=== PATIENT | female | born 1935 | race Caucasian/White ===

== ENCOUNTER 2016-05-04 12:39 | Emergency (ER) | payer OTHER, MEDICARE ==
[~2016-05-04] VITALS: Ht 162.6 cm; Wt 81.4 kg
[2016-05-04 14:00] LABS: EOSINOPHIL (%) 0.8 % (0-5); EOSINOPHIL COUNT 0.1 K/uL (0-0.3); HEMATOCRIT 35.9 % (36.0-46.0); IMMATURE GRANULOCYTE (%) 0.5 % (0.0-0.7); IMMATURE GRANULOCYTE COUNT 0.4 K/uL; LYMPHOCYTE COUNT 1.6 K/uL (1.0-2.8); MCH 30.3 PG (29.0-34.0); MCV 89.3 FL (83-99); MONOCYTE (%) 10.9 % (3-12); MONOCYTE COUNT 0.9 K/uL (0-0.8); NEUTROPHIL (%) 69.5 % (45-76); PLATELET COUNT 318 K/uL (156-360); RBC DIS.WIDTH-CV 13.6 % (11.8-14.6); RED BLOOD COUNT 4.02 M/uL (3.80-5.20); WHITE BLOOD COUNT 8.6 K/uL (4.1-10.2)
[2016-05-04 14:08] LABS: CHLORIDE 96 mEq/L (99-109); SODIUM 135 mEq/L (136-147)
[2016-05-04 14:09] LABS: GLUCOSE 82 mg/dL (70-99)
[2016-05-04 14:11] LABS: ANION GAP 10 MEQ/L (2-14)
[2016-05-04 14:13] LABS: GFR ESTIMATE (CALCULATED) > 59 mL/min/
[2016-05-04 14:14] LABS: UREA NITROGEN (BUN) 10 mg/dL (9-23)
[2016-05-04 15:26] LABS: ADD MIUA? YES; BILIRUBIN NEGATIVE; BLOOD MODERATE; COLOR YELLOW ((YELLOW)); GLUCOSE (STRIP) NEGATIVE; KETONES NEGATIVE; LEUKOCYTES TRACE; NITRITE NEGATIVE; PROTEIN (STRIP) NEGATIVE; SPECIFIC GRAVITY 1.006 (1.000-1.030); UROBILINOGEN 0.2 MG/DL (0.2-1.0)
[2016-05-04 15:59] LABS: BACTERIA NONE SEEN /HPF; EPITHELIAL CELLS RARE /HPF; MUCUS NONE SEEN /LPF; WHITE BLOOD CELLS 0-5 /HPF (0-5)
[2016-05-04 17:52] VITALS: BP 154/84
== END 2016-05-04 17:45 | disposition home or self-care (01) ==
LOC: EME 12:39
PROVIDERS: Emergency Medicine
DX: M54.5 Low back pain (principal); W18.30XA Fall on same level, unspecified, initial encounter
CPT/HCPCS: 72100; 80048; 81003; 85025; 99281; 99284; J1885; J2270

== ENCOUNTER 2017-06-19 09:56 | Inpatient (IN) | payer OTHER, MEDICARE ==
[~2017-06-19] VITALS: Ht 162.6 cm; Wt 77.3 kg
[2017-06-19 10:27] LABS: HEMATOCRIT 41.1 % (36.0-46.0); HEMOGLOBIN 13.8 G/DL (11.9-15.5); MCH 30.4 PG (29.0-34.0); MCHC 33.6 G/DL (30.0-36.0); MCV 90.5 FL (83-99); PLATELET COUNT 227 K/uL (156-360); RBC DIS.WIDTH-CV 14.3 % (11.8-14.6); RBC DIS.WIDTH-SD 47.6 % (39-53); RED BLOOD COUNT 4.54 M/uL (3.80-5.20); WHITE BLOOD COUNT 6.8 K/uL (4.1-10.2)
[2017-06-19 10:35] LABS: ALBUMIN 3.7 g/dL (3.2-4.8)
[2017-06-19 10:36] LABS: CHLORIDE 93 mEq/L (99-109); POTASSIUM 4.3 mEq/L (3.7-5.4); SODIUM 132 mEq/L (136-147)
[2017-06-19 10:38] LABS: GLUCOSE 101 mg/dL (70-99); TOTAL PROTEIN 6.4 g/dL (6.4-8.3)
[2017-06-19 10:40] LABS: TOTAL BILIRUBIN 0.7 mg/dL (0.0-1.0)
[2017-06-19 10:41] LABS: ALKALINE PHOSPHATASE 109 IU/L (3-129)
[2017-06-19 10:42] LABS: CREATININE 0.7 mg/dL (0.6-1.3); GFR ESTIMATE (CALCULATED) > 59 mL/min/
[2017-06-19 10:43] LABS: AST (GOT) 22 IU/L (2-34); UREA NITROGEN (BUN) 9 mg/dL (9-23)
[2017-06-19 10:44] LABS: ALT (GPT) 21 IU/L (3-49)
[2017-06-19 10:48] LABS: TROP-I INTERPRETATION NEGATIVE; TROPONIN-I 0.02 ng/mL (0.0-0.30)
[2017-06-19] MEDS ORDERED: PRINIVIL10 MG PO (14:49)
[2017-06-19] MEDS ORDERED: LASIX20 MG PO (14:49)
[2017-06-19] MEDS ORDERED: VITAMIN B COMP1 EACH PO (14:49)
[2017-06-19] MEDS ORDERED: PROZAC20 MG PO (14:49)
[2017-06-19] MEDS ORDERED: VITAMIN B122500 MCG PO (14:50)
[2017-06-19] MEDS ORDERED: ULTRAM50 MG PO (14:51)
[2017-06-19 15:42] VITALS: BP 157/70
[2017-06-19 15:48] LABS: APPEARANCE CLEAR ((CLEAR)); BILIRUBIN NEGATIVE; BLOOD MODERATE; GLUCOSE (STRIP) NEGATIVE; KETONES NEGATIVE; LEUKOCYTES SMALL; NITRITE NEGATIVE; PROTEIN (STRIP) NEGATIVE; SPECIFIC GRAVITY 1.002 (1.000-1.030); UROBILINOGEN 0.2 MG/DL (0.2-1.0)
[2017-06-19 15:53] VITALS: BP 178/80
[2017-06-19 15:55] LABS: COLOR LT. YELLOW ((YELLOW))
[2017-06-19 16:05] LABS: BACTERIA NONE SEEN /HPF; EPITHELIAL CELLS NONE SEEN /HPF; MUCUS TRACE /LPF; RED BLOOD CELLS TNTC /HPF (0-5)
[2017-06-19 16:58] LABS: TROP-I INTERPRETATION NEGATIVE; TROPONIN-I 0.03 ng/mL (0.0-0.30)
[2017-06-19 19:40] VITALS: BP 112/70
[2017-06-19 23:27] LABS: TROP-I INTERPRETATION NEGATIVE; TROPONIN-I 0.05 ng/mL (0.0-0.30)
[2017-06-19 23:56] VITALS: BP 154/93
[2017-06-20 03:53] VITALS: BP 147/82
[2017-06-20 06:28] LABS: CHLORIDE 93 MEQ/L (99-109); CREATININE 0.6 MG/DL (0.6-1.3); GFR ESTIMATE (CALCULATED) > 59 mL/min/; GLUCOSE 82 mg/dL (70-99); POTASSIUM 3.7 MEQ/L (3.7-5.4); SODIUM 133 MEQ/L (136-147); UREA NITROGEN (BUN) 9 mg/dL (9-23)
[2017-06-20 07:29] VITALS: BP 151/99
[2017-06-20 12:38] VITALS: BP 141/65
[2017-06-20 17:48] VITALS: BP 141/69
[2017-06-20 19:44] VITALS: BP 124/66
[2017-06-21] VITALS (8 sets, daily range): BP systolic 111–162; BP diastolic 52–92
[2017-06-21 06:59] LABS: CHLORIDE 93 MEQ/L (99-109); CREATININE 0.5 MG/DL (0.6-1.3); GFR ESTIMATE (CALCULATED) > 59 mL/min/; GLUCOSE 97 mg/dL (70-99); POTASSIUM 3.9 MEQ/L (3.7-5.4); SODIUM 131 MEQ/L (136-147); UREA NITROGEN (BUN) 9 mg/dL (9-23)
[2017-06-22 05:52] LABS: HEMATOCRIT 41.9 % (36.0-46.0); HEMOGLOBIN 13.7 G/DL (11.9-15.5); MCH 29.3 PG (29.0-34.0); MCHC 32.7 G/DL (30.0-36.0); MCV 89.5 FL (83-99); PLATELET COUNT 245 K/uL (156-360); RED BLOOD COUNT 4.68 M/uL (3.80-5.20); WHITE BLOOD COUNT 6.7 K/uL (4.1-10.2)
[2017-06-22 06:21] LABS: CHLORIDE 90 MEQ/L (99-109); CREATININE 0.5 MG/DL (0.6-1.3); GFR ESTIMATE (CALCULATED) > 59 mL/min/; GLUCOSE 106 mg/dL (70-99); MAGNESIUM 1.8 mg/dl (1.3-2.7); POTASSIUM 4.1 MEQ/L (3.7-5.4); SODIUM 127 MEQ/L (136-147); UREA NITROGEN (BUN) 11 mg/dL (9-23)
[2017-06-22 08:00] VITALS: BP 161/87
[2017-06-22 11:27] VITALS: BP 102/56
[2017-06-22 15:21] VITALS: BP 104/64
[2017-06-22 20:13] VITALS: BP 120/69
[2017-06-22 20:47] LABS: CHLORIDE 90 MEQ/L (99-109); CREATININE 0.8 MG/DL (0.6-1.3); GFR ESTIMATE (CALCULATED) > 59 mL/min/; GLUCOSE 139 mg/dL (70-99); POTASSIUM 3.6 MEQ/L (3.7-5.4); SODIUM 126 MEQ/L (136-147); UREA NITROGEN (BUN) 13 mg/dL (9-23)
[2017-06-23 00:06] VITALS: BP 151/86
[2017-06-23 04:06] VITALS: BP 155/84
[2017-06-23 06:57] LABS: CHLORIDE 89 MEQ/L (99-109); CREATININE 0.6 MG/DL (0.6-1.3); GFR ESTIMATE (CALCULATED) > 59 mL/min/; POTASSIUM 3.7 MEQ/L (3.7-5.4); SODIUM 127 MEQ/L (136-147); UREA NITROGEN (BUN) 12 mg/dL (9-23)
[2017-06-23 06:59] LABS: GLUCOSE 101 mg/dL (70-99)
[2017-06-23 09:04] VITALS: BP 138/65
[2017-06-23 12:14] VITALS: BP 137/63
[2017-06-23 16:30] VITALS: BP 145/75
[2017-06-23 18:36] LABS: CHLORIDE 88 MEQ/L (99-109); CREATININE 0.8 MG/DL (0.6-1.3); GFR ESTIMATE (CALCULATED) > 59 mL/min/; GLUCOSE 92 mg/dL (70-99); SODIUM 125 MEQ/L (136-147); UREA NITROGEN (BUN) 16 mg/dL (9-23)
[2017-06-23 19:29] VITALS: BP 111/55
[2017-06-24] VITALS (7 sets, daily range): BP systolic 106–165; BP diastolic 56–87
[2017-06-24 06:39] LABS: CHLORIDE 89 MEQ/L (99-109); CREATININE 0.5 MG/DL (0.6-1.3); GFR ESTIMATE (CALCULATED) > 59 mL/min/; GLUCOSE 100 mg/dL (70-99); MAGNESIUM 1.8 mg/dl (1.3-2.7); POTASSIUM 4.1 MEQ/L (3.7-5.4); SODIUM 125 MEQ/L (136-147); UREA NITROGEN (BUN) 13 mg/dL (9-23)
[2017-06-25] VITALS (7 sets, daily range): BP systolic 87–138; BP diastolic 45–65
[2017-06-25 09:45] LABS: HEMATOCRIT 42.8 % (36.0-46.0); HEMOGLOBIN 14.5 G/DL (11.9-15.5); MCH 30.3 PG (29.0-34.0); MCHC 33.9 G/DL (30.0-36.0); MCV 89.4 FL (83-99); PLATELET COUNT 225 K/uL (156-360); RBC DIS.WIDTH-CV 14.5 % (11.8-14.6); RBC DIS.WIDTH-SD 47.4 % (39-53); RED BLOOD COUNT 4.79 M/uL (3.80-5.20); WHITE BLOOD COUNT 5.3 K/uL (4.1-10.2)
[2017-06-25 12:26] LABS: CHLORIDE 85 MEQ/L (99-109); CREATININE 0.5 MG/DL (0.6-1.3); GFR ESTIMATE (CALCULATED) > 59 mL/min/; POTASSIUM 4.2 MEQ/L (3.7-5.4); SODIUM 122 MEQ/L (136-147); UREA NITROGEN (BUN) 12 mg/dL (9-23)
[2017-06-25 12:33] LABS: GLUCOSE 187 mg/dL (70-99)
[2017-06-26 04:04] VITALS: BP 148/76
[2017-06-26 06:37] LABS: CHLORIDE 94 MEQ/L (99-109); CREATININE 0.5 MG/DL (0.6-1.3); GFR ESTIMATE (CALCULATED) > 59 mL/min/; GLUCOSE 104 mg/dL (70-99); POTASSIUM 4.2 MEQ/L (3.7-5.4); SODIUM 133 MEQ/L (136-147); UREA NITROGEN (BUN) 14 mg/dL (9-23)
[2017-06-26 08:11] VITALS: BP 115/56
[2017-06-26] MEDS ORDERED: ENTRESTO 24 MG1 EACH PO (08:47)
[2017-06-26 10:56] VITALS: BP 93/50
[2017-06-26 16:14] VITALS: BP 110/58
[2017-06-26 17:07] LABS: CHLORIDE 92 MEQ/L (99-109); CREATININE 0.8 MG/DL (0.6-1.3); GFR ESTIMATE (CALCULATED) > 59 mL/min/; GLUCOSE 79 mg/dL (70-99); POTASSIUM 3.9 MEQ/L (3.7-5.4); SODIUM 132 MEQ/L (136-147); UREA NITROGEN (BUN) 17 mg/dL (9-23)
[2017-06-26 20:00] VITALS: BP 101/52
[2017-06-27 01:11] VITALS: BP 124/58
[2017-06-27 04:00] VITALS: BP 130/59
[2017-06-27 06:04] LABS: HEMATOCRIT 39.7 % (36.0-46.0); HEMOGLOBIN 13.1 G/DL (11.9-15.5); MCH 29.9 PG (29.0-34.0); MCV 90.6 FL (83-99); PLATELET COUNT 242 K/uL (156-360); RBC DIS.WIDTH-CV 14.6 % (11.8-14.6); RED BLOOD COUNT 4.38 M/uL (3.80-5.20); WHITE BLOOD COUNT 5.8 K/uL (4.1-10.2)
[2017-06-27 06:29] LABS: CHLORIDE 90 MEQ/L (99-109); CREATININE 0.7 MG/DL (0.6-1.3); GFR ESTIMATE (CALCULATED) > 59 mL/min/; GLUCOSE 96 mg/dL (70-99); POTASSIUM 4.1 MEQ/L (3.7-5.4); SODIUM 130 MEQ/L (136-147); UREA NITROGEN (BUN) 21 mg/dL (9-23)
[2017-06-27 07:34] VITALS: BP 139/64
[2017-06-27] MEDS ORDERED: CARVEDILOL6.25 MG PO (12:36)
[2017-06-27] MEDS ORDERED: MAG-OXIDE400 MG PO (12:37)
[2017-06-27] MEDS ORDERED: LASIX80 MG PO ×2 (12:37→12:40)
[2017-06-27 12:48] VITALS: BP 132/59
== END 2017-06-27 14:49 | disposition home or self-care (01) | DRG 292 ==
LOC: EME 09:56 → ENRESERV 13:04 → EDOF 13:06 → ENRESERV 13:42 → 5WEST 15:15
PROVIDERS: Emergency Medicine; Hospitalist; Internal Medicine; Nurse Practitioner Adult Health
DX: I11.0 Hypertensive heart disease with heart failure (principal); E87.1 Hypo-osmolality and hyponatremia; I50.23 Acute on chronic systolic (congestive) heart failure; R09.02 Hypoxemia; Z87.891 Personal history of nicotine dependence; Z90.710 Acquired absence of both cervix and uterus; Z91.11 Patient's noncompliance with dietary regimen; F32.9 Major depressive disorder, single episode, unspecified
CPT/HCPCS: 71045; 71046; 80048; 80048 91; 80053; 81003; 83735; 83880; 83930; 83935; 84300; 84443; 84484; 85027; 93005; 93306; 93971; 94799; 97530 GO; 97530 GP; 99281; 99285; G0378; G8978 GP CI; G8979 GP CH; J1650; J1940; J2597; J7070